=== PATIENT | male | born 1945 | race Caucasian/White ===

== ENCOUNTER 2023-09-08 07:29 | Observation (INO) | payer MEDICARE, SELFPAY ==
[2023-09-08] VITALS (14 sets, daily range): BP systolic 135–180; BP diastolic 60–87; PULSE 74–90; RESP 16–20; TEMP 36.1–36.6; O2SAT 92–99; BMI 27.6
--- NOTE | 2023-09-08 | IMM_PTH ---
PATIENT: KATHY MARTINEZ LOC: MS3 U#:[id number] AGE/SX: 78/M ROOM: [facility]325 RE09/08/[address]: Dr. Barrett Kraft MD : 1945 BED: 1 DIS: 09/09/2023 SPEC #: [id number] RECD: 09/11/23 13:41 STATUS: [facility] REQ #: [id number] BETTYE: 09/08/23 00:[address]: Barrett Kraft DEPT: IMMUNOHISTOCHEMISTRY RECD BY: Alexandru Elizabeth ENTERED: 09/11/23 13:42 SP TYPE: IMMUNO OTHR DR: Dr. Nelson Dalton, DO Tissues: Prostate, NOS Procedures: SMA (add) CD31 (add) CK20 (add) CK7 (add) CK8 (add) DESMIN (add) KI-67 (add) P53 (add) 34BE12 (add) SMM (add) FACTOR VIII (add) Pankeratin (initial) P40 (add) PSAP (add) S-100 (add) PHYSICIAN & [address] [address] SPECIMEN INFORMATION: Tissue Source: Prostate tissue Clinical Info: Prostate cancer with obstruction Specimen Number: [id number] BLOCK 6 CPT code: 62551,80911l04 METHODOLOGY: Deparaffinized sections of prefer/formalin-fixed tissue or PAP/DQ stained slides are incubated with monoclonal/polyclonal antibodies/oligonucleotide probes. Localization is made via biotin free immunoperoxidase method. Appropriate controls are performed and reacted as expected. Results on target cell population are indicated in the following table: RESULTS: ANTIBODY / CLONE RESULT AE1-3 (AE1/AE3/PCK26) positive CK7 (OV-TL12/30) negative CK8 (94szomT55) positive CK20 (KS20.8) positive, rare CD31 (RAEGAN/70A) negative Factor VIII (R Ag) negative Actin (1A4) negative Myosin (simms1) negative Desmin (CE-R-11) negative S-100 (4C4.9) negative P53 (DO-7) positive, 80% missense type Ki-67 (30-9) positive, 20% 34BE12 (34BE12) negative P40 (BC28) negative PSA (ER-PR8) positive These tests were developed and their performance characteristics determined by [facility]. They may not have been cleared or approved by the U.S. Food and Drug Administration. The FDA has determined that such clearance or approval is not necessary. The above immunohistochemical/dualISH markers are ordered and reviewed by the Pathologist. INTERPRETATION: Prostate tissue, transurethral resection: Invasive poorly differentiated prostatic carcinoma. AM/mr 09/13/23
[2023-09-08] MEDS: Lactated Ringers 1,000 ML 15 ML IV (06:05)
--- NOTE | 2023-09-08 07:30 | PROS_PTH ---
PATIENT: KATHY MARTINEZ LOC: MS3 U#:[id number] AGE/SX: 78/M ROOM: [facility] RE09/08/[address]: Dr. Barrett Kraft MD : 1945 BED: 1 DIS: 09/09/2023 SPEC #: [id number] RECD: 09/08/23 11:00 STATUS: JOSESITO TAN #: [id number] BETTYE: 09/08/23 07:[address]: Barrett Kraft DEPT: SURGICAL PATHOLOGY RECD BY: Shay Van ENTERED: 09/08/23 11:48 SP TYPE: TURP OTHR DR: Dr. Nelson Dalton, DO Tissues: Prostate, NOS Procedures: Surgery Specimen Level IV HEADER OPERATION: Transurethral resection of prostate and bladder tumor PRE-OP DIAGNOSIS: Prostate cancer with obstruction TISSUE SUBMITTED: Prostate tissue MICROSCOPIC DIAGNOSIS Prostate, transurethral resection: Infiltrating prostatic adenocarcinoma. See cancer template below. AM/mr 09/11/2023 COMMENT PROSTATE CANCER (TUR) SUMMARY: Procedure - transurethral resection of prostate (TURP) Specimen size - Histologic type - Adenocarcinoma Histologic grade (Vassar Pattern) - 9 Percent of paraffin 4: 30% Percent of paraffin 5: 70% Intraductal carcinoma: Not identified Estimated % of tissue involved: 90% Tumor Quantitation (TUR specimens): 90%of tissue Periprostatic fat invasion - Not applicable. No fat present Seminal vesicle invasion - Not applicable: No seminal vesicle tissue present Lymphvascular invasion - Not identified Perineural invasion - Not identified Additional pathologic findings -chronic inflammation Treatment effect - Unknown The above summary is in compliance with [employer] (CAP) Cancer Protocols Checklist and [place] Joint Committee on Cancer (AJCC), Staging Manual, 8th Ed. Immunohistochemistry ([id number]) supports the above diagnosis. MICROSCOPIC DESCRIPTION Slides are reviewed. GROSS DESCRIPTION Received is one container labeled with the patient's name and designated prostate tissue. The specimen consists of multiple irregular fragments of pink-jones, rubbery, soft tissue that in aggregate weigh 11.4 gm and measure in aggregate 5.0 x 4.5 x 1.0 cm. Multiple fragments of brownish soft necrotic tissue are also noted. The entire specimen is submitted in ten cassettes. JONI/ 09/08/23 TC:0 CPT: 02200
[2023-09-08] MEDS: Cefazolin 2 GM in 0.9% Normal Saline (100mL Bag) 100 ML IV (07:45)
[2023-09-08 08:04] LABS: Bedside Glucose 137 mg/dL (74-106)
--- NOTE | 2023-09-08 08:28 | PCM.HP.STD ---
HPI - General General Date of Service: 09/08/23 Chief Complaint: Urinary retention HPI Narrative KATHY MARTINEZ, is a 78 M who presents for a transurethral resection of prostate he has obstruction for bladder cancer at the bladder neck so I do a transurethral section of the prostate. [facility] Medical History (Updated 09/05/23 @ 14:38 by Pilar Waddell) Anemia Asthma Back pain Bladder disease Cancer Cardiology follow-up encounter Chemotherapy induced diarrhea Collapse of both lungs Diabetes Dietary restriction DVT (deep venous thrombosis) Gastric reflux History of atrial fibrillation History of chemotherapy History of CHF (congestive heart failure) History of echocardiogram History of edema History of GI bleed History of pain when walking History of steroid therapy Hypertension Indwelling urethral catheter present Injury of back Injury of head and neck Leg cramps Low iron Neuropathy Non-smoker Prostate disease Shortness of breath on exertion Wears hearing aid Wears partial dentures Home Medications Lactobacillus acidophilus 250 million cell capsule (Probiotic Acidophilus) 500 mmu cells PO DAILY 09/05/23 [History Last Taken Unknown] amlodipine 2.5 mg tablet 2.5 mg PO DAILY 09/05/23 [History Last Taken 09/07/23] apixaban 5 mg tablet (Eliquis) 5 mg PO BID 09/05/23 [History Last Taken 09/01/23] aspirin 81 mg tablet,delayed release (Adult Low Dose Aspirin) 81 mg PO DAILY 09/05/23 [History Last Taken 09/01/23] cabazitaxel 10 mg/mL (first dilution) intravenous solution 50 mg IV .EVERY THREE WEEKS 09/05/23 [History Last Taken Unknown] doxycycline hyclate 100 mg capsule 100 mg PO BID 09/05/23 [History Last Taken Unknown] ibuprofen 800 mg tablet 800 mg PO TID PRN PRN pain 09/05/23 [History Last Taken 09/07/23] metformin 500 mg tablet 500 mg PO DAILY 09/05/23 [History Last Taken Unknown] metoprolol succinate 50 mg tablet,extended release 24 hr 100 mg PO QHS 09/05/23 [History Last Taken 09/07/23 18:00] ondansetron HCl 8 mg tablet 8 mg PO Q8H PRN PRN nausea/vomiting 09/05/23 [History Last Taken Unknown] pantoprazole 40 mg tablet,delayed release 40 mg PO DAILY 09/05/23 [History Last Taken 09/07/23] phenazopyridine 99.5 mg tablet 99.5 mg PO TID PRN pain 09/05/23 [History Last Taken Unknown] prednisone 5 mg tablet 5 mg PO DAILY 09/05/23 [History Last Taken Unknown] tamsulosin 0.4 mg capsule 0.4 mg PO QHS PRN PRN URINE FLOW 09/05/23 [History Last Taken Unknown] torsemide 20 mg tablet 20 mg PO DAILY PRN PRN edema 09/05/23 [History Last Taken Unknown] cephalexin 500 mg capsule 500 mg PO TID #15 caps 09/08/23 [Rx Last Taken Unknown] Allergy/AdvReac Type Severity Reaction Status Date / Time ciprofloxacin [From Cipro] AdvReac Severe Diarrhea Verified 09/08/23 05:55 Surgical History (Updated 09/05/23 @ 14:38 by Pilar Waddell) History of esophagogastroduodenoscopy (EGD) History of heart surgery History of heart surgery History of hernia surgery Hx of cholecystectomy Hx of colonoscopy Social History Smoking Status: Never smoker Vital Signs Vital Signs Vital Signs: 09/08/23 05:58 09/08/23 05:58 Temperature 98 F Temperature Source Temporal Pulse Rate 86 Respiratory Rate 16 Respiratory Pattern Normal Blood Pressure 136/65 H Blood Pressure Mean 88 Blood Pressure Source Monitor Blood Pressure Position Sitting Blood Pressure Location Right Arm Pulse Ox 98 Oxygen Delivery Method Room Air Weight Weight: 92.533 kg Body Mass Index (BMI) 27.6 Results Lab / Micro Data Labs: Laboratory Results - last 24 hr 09/08/23 05:59: POC Glucose 137 H
--- NOTE | 2023-09-08 08:29 | DCINST_ITS ---
Discharge Instructions Diet Discharge Diet: No restrictions Activity Discharge Activity: Return to Normal Activity and May Not Drive (while taking narcotic pain medications.) Dressing / Incision Call your doctor if you observe: Fever of 101 or Higher Follow Up Care Please Follow Up With: Barrett Kraft MD When: Call [phone] for an appointment Test Results: Test results from this visit will be discussed in further detail at your follow- up appointment, if applicable. Discharge Plan Admission Primary Reason for Your Visit: TURP Attending Provider: Barrett Kraft Primary Care Provider: Nelson Dalton Discharge Orders/Prescriptions Prescriptions: New cephalexin 500 mg capsule 500 mg PO TID Qty: 15 0RF Continued cabazitaxel 10 mg/mL (first dilution) solution 50 mg IV .EVERY THREE WEEKS metoprolol succinate 50 mg tablet extended release 24 hr 100 mg PO QHS amlodipine 2.5 mg tablet 2.5 mg PO DAILY prednisone 5 mg tablet 5 mg PO DAILY ondansetron HCl 8 mg tablet 8 mg PO Q8H PRN PRN (Reason: nausea/vomiting) metformin 500 mg tablet 500 mg PO DAILY torsemide 20 mg tablet 20 mg PO DAILY PRN PRN (Reason: edema) pantoprazole 40 mg tablet,delayed release (DR/EC) 40 mg PO DAILY Probiotic Acidophilus 250 million cell capsule 500 mmu cells PO DAILY ibuprofen 800 mg tablet 800 mg PO TID PRN PRN (Reason: pain) phenazopyridine 99.5 mg tablet 99.5 mg PO TID PRN (Reason: pain) doxycycline hyclate 100 mg capsule 100 mg PO BID Held tamsulosin 0.4 mg capsule 0.4 mg PO QHS PRN PRN (Reason: URINE FLOW) Hold Instructions: Resume on 09/08/23. Eliquis 5 mg tablet 5 mg PO BID Hold Instructions: Resume on 09/22/23. aspirin [Adult Low Dose Aspirin] 81 mg tablet,delayed release (DR/EC) 81 mg PO DAILY Hold Instructions: Resume on 09/22/23. Referrals / Follow Up: Barrett Kraft MD [Med Staff - Active Staff] - Nelson Dalton DO [Primary Care Provider] - Disposition Disposition (needs filled in before D/C Order can be placed): Home, Self Care
--- NOTE | 2023-09-08 08:31 | OP.PCM_ITS ---
Report of Operation Date of Procedure: 09/08/23 Pre-Operative Diagnosis: Obstruction of the prostate from cancer Post-Operative Diagnosis: The same Surgery/Procedure Performed:: Cystoscopy and transurethral resection of prostate Description of Surgical Findings:: This is a 78-year-old male with advanced prostate cancer he developed gross hematuria and retention of urine. He has a Natarajan catheter in place has not been able to urinate on cystoscopy found to have a significant blockage of the bladder neck and the prostate with cancer growing at the bladder neck and prostate area looks like prostate cancer so we will proceed with resection of the prostate cancer there is no plan to do a complete resection so this cancer is invasive but at least to open up channel so that he can urinate normally and cauterize the prostate. Bleeding. Patient was taken back to the operating room at this with induction of anesthesia the Natarajan catheter was removed he was placed in dorsolithotomy position, the Natarajan catheter was removed I went into the bladder with a 21 Martiniquais cystourethroscope what I found was that the entire length of the urethra was intact he had some like scars looking tissue right at the sphincter I got through this okay past the verumontanum and then, there was like a lot of tissue that was cancerous looking this fluffy tissue that was at the bladder neck some hard tissue the bladder neck some yellowish-brownish hard tissue this was causing blockage, I then proceeded with resection of all the tissue at the bladder neck area of the prostate area resecting down to the verumontanum and that did a complete resection but nature I did not carry the resection too far down he has good bladder control still at the end we did a flow test had a wide open flow could a lot of tissue that was causing obstruction and then a flow test was done cauterized extensively all the bleeding stopped and the patient acetic was reversed put a 22 Martiniquais catheter into the bladder for continuous irrigation and takeback to PACU in good condition we kept overnight for irrigation we will do a voiding trial tomorrow morning. Surgeon: Barrett Kraft Type of Anesthesia: General Drains: [address] Admit VTE Documentation VTE Present on Admission: No VTE Mechan Device Prophylaxis: SCD's VTE Pharm Prophylaxis ordered?: No
[2023-09-08] MEDS: Ondansetron 4 MG/2 ML Vial IV (10:04)
[2023-09-08] MEDS: oxyCODONE 5 MG Tablet PO (10:04)
[2023-09-08 10:06] LABS: Bedside Glucose 161 mg/dL (74-106)
[2023-09-08] MEDS: 0.9% Normal Saline (1000mL) 1,000 ML 125 ML IV ×2 (13:00→23:22)
[2023-09-08] MEDS: amLODIPine 2.5 MG Tablet PO (13:15)
[2023-09-08] MEDS: Pantoprazole Sodium 40 MG Tablet PO (13:15)
[2023-09-08] MEDS: Cefazolin 1 GM/50 ML BAG IV ×2 (16:21→23:22)
[2023-09-08] MEDS: Ibuprofen 400 MG Tablet 800 MG PO (20:27)
[2023-09-08] MEDS: Docusate Sodium 100 MG Capsule 200 MG PO (20:28)
[2023-09-08] MEDS: Metoprolol(XL)Succ 100 MG Tablet PO (20:28)
[2023-09-09 00:51] VITALS: BP 138/67; PULSE 80; RESP 16; TEMP 36.7; O2SAT 97
[2023-09-09 04:51] VITALS: BP 151/64; PULSE 67; RESP 16; TEMP 36.6; O2SAT 97
[2023-09-09 08:07] VITALS: BP 159/80; PULSE 69; RESP 18; TEMP 36.6; O2SAT 97
[2023-09-09] MEDS: Docusate Sodium 100 MG Capsule 200 MG PO (08:22)
[2023-09-09] MEDS: Pantoprazole Sodium 40 MG Tablet PO (08:22)
[2023-09-09] MEDS: amLODIPine 2.5 MG Tablet PO (08:22)
[2023-09-09] MEDS: predniSONE 5 MG Tablet PO (08:22)
[2023-09-09] MEDS: metFORMIN HCl 500 MG Tablet PO (08:22)
--- NOTE | 2023-09-09 08:24 | NURSING ---
CBI stopped at 0800 by this RN per orders. The drainage in the kirk bag is pale yellow, no clots.
--- NOTE | 2023-09-09 10:21 | PCM.PN.GU ---
Subjective Subjective s/p TURP urine is clear off irrigation d/c kirk and home today Objective Data Objective Data Vital Signs: Vital Signs Temp Pulse Resp BP Pulse Ox O2 Del Method 97.8 F 69 18 159/80 H 97 Room Air 09/09/23 08:07 09/09/23 08:07 09/09/23 08:07 09/09/23 08:07 09/09/23 08:07 09/09/23 08:07 Oxygen Delivery Method Room Air Weight: 92.533 kg Body Mass Index (BMI) 27.6 Intake & Output: Intake and Output for Last 24 Hours 09/07/23 09/08/23 09/09/23 23:59 23:59 23:59 Intake Total 1813.75 / 2413.75 1900 / 1900 Output Total 1610 / 1610 300 / 300 Balance 203.75 / 803.75 1600 / 1600
--- NOTE | 2023-09-09 10:30 | CASEMGMT ---
MED WANG in to complete LOCKE form. RN KATHLEEN explained LOCKE form to patient, patient voiced understanding. Patient signed LOCKE Form and filed in chart. Patient provided copy of signed LOCKE Form. Patient had no further questions or concerns.
== END 2023-09-09 12:13 | disposition home or self-care (01) ==
LOC: SDC 11:58 → MS3 11:58
PROVIDERS: Admitting Provider Urology; Referring Provider Urology; Visit Provider Urology
PROC: (CPT 52601; principal; 2023-09-08 07:20)
DX: C61 Malignant neoplasm of prostate (principal); C67.9 Malignant neoplasm of bladder, unspecified; I50.9 Heart failure, unspecified; I11.0 Hypertensive heart disease with heart failure; I48.91 Unspecified atrial fibrillation; E11.40 Type 2 diabetes mellitus with diabetic neuropathy, unspecified; Z79.01 Long term (current) use of anticoagulants; Z79.82 Long term (current) use of aspirin; K21.9 Gastro-esophageal reflux disease without esophagitis; Z86.718 Personal history of other venous thrombosis and embolism; Z79.899 Other long term (current) drug therapy; Z79.84 Long term (current) use of oral hypoglycemic drugs; R06.02 Shortness of breath; E61.1 Iron deficiency; Z96.0 Presence of urogenital implants
CPT/HCPCS: 52601; 82962; 88305; 88341; 88342; 96361; 96365; 96366; 99221; J7030; J7120; G0378; J2405

== ENCOUNTER → 2023-12-07 | Outpatient (CLI) | payer MEDICARE, SELFPAY ==
--- NOTE | 2023-12-07 14:06 | CT_ITS ---
ACR Level 3 findings have been noted. An addendum which confirms receipt of the report will follow. INDICATION: GROSS HEMATURIA EXAMINATION: CT ABDOMEN AND PELVIS WITH AND WITHOUT CONTRAST - CT Abdomen And Pelvis WO/W Contrast Injection TECHNIQUE: Helically acquired images were obtained of the abdomen and pelvis both before and after IV contrast. A radiation dose optimization technique was used for this scan. IV Contrast dosage and agent: 100 cc Isovue-300 Oral contrast: None. COMPARISON: None. FINDINGS: LOWER CHEST: Bibasilar pleural effusions with adjacent compressive atelectasis. No cardiomegaly or pericardial effusion. LIVER: Too numerous to count low attenuation lesions in both lobes. Enlargement to 19.8 cm. GALLBLADDER AND BILIARY TREE: Gallbladder not seen. No intra- or extrahepatic biliary ductal dilation. PANCREAS: No focal cystic or solid mass. SPLEEN: Normal size without focal cystic or solid mass. ADRENAL GLANDS: No nodules. KIDNEYS AND URETERS: Bilateral hydroureteronephrosis without obstructing ureteral calculus. PERITONEUM: Trace ascites. No free air. BOWEL: Normal appendix. No stomach or bowel distension. Colonic diverticulosis without focal inflammatory bowel wall changes.. Small bowel loops in the posterior pelvis clumped together with limited ability to discriminate distinct bowel loops. LYMPH NODES: Multiple mildly enlarged lymph nodes in the bilateral ischio-rectal fossae with enlarged portal lymph node, 1.5 x 2.9 cm. VESSELS: Aorta is non-dilated. URINARY BLADDER: Nondistended with grossly abnormal and thickened bladder wall. REPRODUCTIVE ORGANS: Prostate bed therapy implant seeds. ABDOMINAL WALL: Changes from prior ventral hernia repair. BONES: Extensive sclerotic skeletal metastasis involving the pelvis and multiple vertebral bodies. CT/CT Abd/Pelvis W/WO Contrast IMPRESSION: Prostate bed implant therapy seeds with multiple mildly enlarged lymph nodes in the true pelvis about the rectum and prostate gland. Findings suspicious for possible recurrence. Markedly abnormal bladder wall, intrinsic bladder wall pathology including inflammation or neoplasia is suspected. Extensive skeletal sclerotic metastasis. Periportal adenopathy. Bilateral hydroureteronephrosis. Etiology likely related to bladder abnormality. Bibasilar pleural effusions. Electronically Signed: Alexis Medrano MD at 17:09 EDT ,
[2023-12-07 14:40] LABS: CREATININE FINGERSTICK 1.7 mg/dL (0.70-1.30)
== END | disposition home or self-care (01) ==
PROVIDERS: Referring Provider Urology; Visit Provider Urology
DX: Z01.812 Encounter for preprocedural laboratory examination (principal); R31.0 Gross hematuria; R30.0 Dysuria
CPT/HCPCS: 74178; 87077; 87086; 87088; 87186; Q9967